=== PATIENT | female | born 1970 | race Caucasian/White ===

== ENCOUNTER 2017-08-07 00:54 | Emergency (ER) | payer OTHER ==
[~2017-08-07] VITALS: Ht 154.9 cm; Wt 49.0 kg
[2017-08-07] MEDS ORDERED: PERCOCET 5/31 TABLET PO (02:10)
[2017-08-07] MEDS ORDERED: NAPROSYN500 MG PO (02:10)
[2017-08-07 03:54] VITALS: BP 93/81
== END 2017-08-07 03:54 | disposition home or self-care (01) ==
LOC: EME 00:54
DX: S82.142A Displaced bicondylar fracture of left tibia, initial encounter for closed fracture (principal); X50.9XXA Other and unspecified overexertion or strenuous movements or postures, initial encounter; Y93.01 Activity, walking, marching and hiking; Z72.0 Tobacco use
CPT/HCPCS: 73564; 73700; 99281; 99284; J2270